=== PATIENT | female | born 1990 | race Caucasian/White ===

== ENCOUNTER → 2016-06-14 | Outpatient (CLI) | payer OTHER | LOC: LAB 07:43 | PROVIDERS: ATTEND Internal Medicine Endocrinology, Diabetes & Metabolism | DX: E22.1 Hyperprolactinemia (principal) | CPT/HCPCS: 36415; 80299; 82533 ==

== ENCOUNTER → 2016-06-25 | Outpatient (CLI) | payer OTHER | LOC: LAB 17:54 | PROVIDERS: ATTEND Internal Medicine Endocrinology, Diabetes & Metabolism | DX: E22.1 Hyperprolactinemia (principal) | CPT/HCPCS: 36415; 84146 ==

== ENCOUNTER → 2016-10-02 | Outpatient (CLI) | payer OTHER | LOC: LAB 17:50 | PROVIDERS: ATTEND Internal Medicine Endocrinology, Diabetes & Metabolism | DX: E22.1 Hyperprolactinemia (principal) ==

== ENCOUNTER → 2016-10-06 | Outpatient (CLI) | payer OTHER ==
[2016-10-02 18:28] LABS: ANION GAP 11 MMOL/L (5-14); BLOOD UREA NITROGEN 7 MG/DL (7-18); BUN/CREATININE RATIO 8; CALCIUM 9.9 MG/DL (8.5-10.1); CARBON DIOXIDE 23 MMOL/L (21-32); CHLORIDE 103 MMOL/L (98-107); CREATININE SERUM 0.85 MG/DL (0.60-1.30); GFR ESTIMATED > 60; GLUCOSE 80 MG/DL (70-105); POTASSIUM 3.7 MMOL/L (3.6-5.0); SODIUM 137 MMOL/L (135-145)
[~2016-10-06] MED LIST: GADOBUTROL 10 MMOL/10 ML (GADAVIST) VIAL IV ONE
--- NOTE | 2016-10-06 10:27 | Diagnostic Imaging Report ---
EXAMINATION: Multiplanar multisequence MRI of the brain with dedicated thin sections through the pituitary area performed with and without intravenous contrast. INDICATION: Followup hyperprolactinemia and question of microadenoma seen on 02/01/2016 exam. 9 mL of Gadavist is administered intravenously. FINDINGS: There is no diffusion restriction to suggest an acute infarct or other diffusion abnormality. The brain parenchyma demonstrates normal nino and white matter signal. No demyelinating process, mass or brain edema seen. No hydrocephalus. The brainstem and the cerebellum appear unremarkable. There is no enhancing brain mass. Thin sections through the sella demonstrate preserved flow-void signal in the suprasellar cistern, southern ute of [place] and other major vessels. The internal auditory canals and inner ear structures appear symmetric. The pituitary gland is normal in size with no significant mass or evidence of macroadenoma. The pituitary stalk is normal in thickness. The pituitary gland demonstrates minimal heterogeneity in its enhancement without a discrete lesion seen. The previously seen nodular density within the right side of the pituitary gland questioned to be a possible microadenoma versus artifact is less apparent on the current exam in favor of an artifact from volume averaging with no definite true lesion seen. Dynamic thin imaging through the pituitary gland with multiple series performed after intravenous contrast were all reviewed without a discrete nodule in the pituitary gland demonstrated. IMPRESSION: Unremarkable exam. There is no sellar mass. No definite evidence of a pituitary microadenoma. Dictated by: Dictated on workstation # [id number]
== END ==
LOC: RAD 07:44
PROVIDERS: ATTEND Internal Medicine Endocrinology, Diabetes & Metabolism
DX: E22.1 Hyperprolactinemia (principal)
CPT/HCPCS: 36415; 70553; 80048; 84146

== ENCOUNTER → 2017-02-25 | Outpatient (CLI) | payer OTHER ==
[2017-02-25 11:28] LABS: ANION GAP 9 MMOL/L (5-14); BLOOD UREA NITROGEN 7 MG/DL (7-18); BUN/CREATININE RATIO 8; CALCIUM 9.8 MG/DL (8.5-10.1); CARBON DIOXIDE 25 MMOL/L (21-32); CHLORIDE 106 MMOL/L (98-107); CREATININE SERUM 0.92 MG/DL (0.60-1.30); GFR ESTIMATED > 60; GLUCOSE 133 MG/DL (70-105); POTASSIUM 3.8 MMOL/L (3.6-5.0); SODIUM 140 MMOL/L (135-145)
== END ==
LOC: LAB 10:43
PROVIDERS: ATTEND Internal Medicine Endocrinology, Diabetes & Metabolism
DX: E22.1 Hyperprolactinemia (principal)
CPT/HCPCS: 36415; 80048; 84146

== ENCOUNTER → 2017-07-04 | Outpatient (CLI) | payer OTHER | LOC: LAB 13:05 | PROVIDERS: ATTEND Internal Medicine Endocrinology, Diabetes & Metabolism | DX: R73.9 Hyperglycemia, unspecified (principal); E22.1 Hyperprolactinemia | CPT/HCPCS: 36415; 83036; 84146 ==

== ENCOUNTER → 2018-03-18 | Outpatient (CLI) | payer OTHER | LOC: LAB 15:08 | PROVIDERS: ATTEND Internal Medicine Endocrinology, Diabetes & Metabolism | DX: E22.1 Hyperprolactinemia (principal) | CPT/HCPCS: 36415; 84146 ==